=== PATIENT | female | born 1970 | race Caucasian/White ===

== ENCOUNTER 2019-12-05 18:54 | Observation (INO) | payer OTHER, SELFPAY ==
[2019-12-05 19:21] LABS: Absolute Lymphocytes (CBC) 2.8 K/uL (0.7-4.9); Basophils % 0.9 % (0-1.3); Hematocrit 46.4 % (36.0-45.0); MPV 9.4 fL (7.6-11.3); RBC Red Blood Cell Count 4.82 M/uL (3.86-4.86)
[2019-12-05 19:23] LABS: Protime INR 0.86
[2019-12-05] MEDS ORDERED: ASPIRIN 81 MG CHEWABLE TABLET ONE (19:43)
[2019-12-05] MEDS ORDERED: ONDANSETRON 4 MG/2 ML VIAL ONE (19:43)
[2019-12-05 19:50] LABS: ALT/SGPT 25 U/L (12-78); AST/SGOT 25 U/L (15-37); Albumin 3.6 g/dL (3.4-5.0); Alkaline Phosphatase 101 U/L (45-117); BUN Blood Urea Nitrogen 15 mg/dL (7-18); Bicarbonate 24 mmol/L (21-32); Bilirubin Direct < 0.1 mg/dL (0-0.2); Bilirubin Total 0.2 mg/dL (0.2-1.0); Glucose Level 82 mg/dL (74-106); Magnesium 2.7 mg/dL (1.8-2.4); NT PRO-BNP 190 pg/mL (<125); Potassium 4.5 mmol/L (3.5-5.1); Protein, Total 7.7 g/dL (6.4-8.2); Sodium Level 141 mmol/L (136-145); Troponin (Emerg Dept Use Only) < 0.02 ng/mL (0.0-0.045)
[2019-12-05] MEDS ORDERED: HYDROMORPHONE HCL 1 MG/ML INJ ONE (20:33)
[2019-12-05] MEDS ORDERED: NA CHLORIDE 0.9% 1,000 ML ONE (20:33)
[2019-12-05] MEDS ORDERED: ACETAMINOPHEN 500 MG TAB PO PRN (21:00)
[2019-12-05] MEDS ORDERED: MORPHINE 4 MG/ML SYR IV PRN (21:00)
--- NOTE | 2019-12-05 21:43 | EDPHYS ---
Physician Documentation [facility] Name: Diane Segovia Age: 49 yrs Sex: Female : 1970 Arrival Date: 12/05/2019 Time: 18:58 Bed 6 Private MD: ED Physician Roberto Dolan HPI: 12/04 21:15 This 49 yrs old Female presents to ER via Wheelchair with complaints of Chest ma2 Pain. 21:15 The patient or guardian reports chest pain that is located primarily in the substernal ma2 area. Onset: suddenly, 1 day(s) ago. Associated signs and symptoms: Pertinent negatives: cough, dizziness, lower extremity pain, lightheadedness. Duration: The patient or guardian reports a single episode. Severity of pain: At its worst the pain was moderate in the emergency department the pain has improved. The patient has experienced a previous episode. 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 - Social history:: Smoking status: Patient reports the use of cigarette tobacco products, cigars, Patient uses alcohol, on a daily basis. Patient/guardian denies using street drugs, Patient/guardian denies using alcohol. - Family history:: not pertinent. ROS: 21:15 Constitutional: Negative for fever, chills, and weight loss. ma2 21:15 All other systems are negative. Exam: 21:15 Constitutional: This is a well developed, well nourished patient who is awake, alert, ma2 and in no acute distress. Chest/axilla: Normal chest wall appearance and motion. Nontender with no deformity. No lesions are appreciated. Cardiovascular: Regular rate and rhythm with a normal S1 and S2. No gallops, murmurs, or rubs. Normal PMI, no JVD. No pulse deficits. Respiratory: Lungs have equal breath sounds bilaterally, clear to auscultation and percussion. No rales, rhonchi or wheezes noted. No increased work of breathing, no retractions or nasal flaring. Abdomen/GI: Soft, non-tender, with normal bowel sounds. No distension or tympany. No guarding or rebound. No evidence of tenderness throughout. MS/ Extremity: Pulses equal, no cyanosis. Neurovascular intact. Full, normal range of motion. Neuro: Awake and alert, GCS 15, oriented to person, place, time, and situation. Cranial nerves II-XII grossly intact. Motor strength 5/5 in all extremities. Sensory grossly intact. Cerebellar exam normal. Normal gait. Vital Signs: 18:58 BP 138 / 101; Pulse 69; Resp 18; Temp 98.3; Pulse Ox 99% ; Pain 6/10; ll1 20:14 BP 136 / 88; Pulse 66; Resp 16; Pulse Ox 97% on R/A; rv 21:00 BP 138 / 86; Pulse 68; Resp 16; Pulse Ox 98% on R/A; rv 22:00 BP 136 / 91; Pulse 66; Resp 16; Pulse Ox 97% on R/A; rv 23:00 BP 131 / 88; Pulse 86; Resp 17; Temp 98; Pulse Ox 97% on R/A; rv MDM: 19:04 Patient medically screened. ma2 21:15 Differential diagnosis: esophagitis, gastritis, gastroesophageal reflux disease (GERD), ma2 pleurisy, stable angina, unstable angina. HEART Score: History: Moderately Suspicious (1), ECG: Normal (0), Age: > 45 and < 65 years (1), Risk Factors: No Risk Factors Known (0), Troponin: < or = 1 x Normal Limit (0). The patient was given aspirin in the Emergency Department. Data reviewed: vital signs, nurses notes. 21:15 Counseling: I had a detailed discussion with the patient and/or guardian regarding: the ma2 historical points, exam findings, and any diagnostic results supporting the discharge/admit diagnosis, the presence of at least one elevated blood pressure reading (>120/80) during this emergency department visit, the need for further work-up and treatment in the hospital. 12/04 19:03 Order name: Basic Metabolic Panel; Complete Time: 20:37 sv 12/04 19:03 Order name: CBC with Diff; Complete Time: 20:37 sv 12/04 19:03 Order name: LFT's; Complete Time: 20:37 sv 12/04 19:03 Order name: Magnesium; Complete Time: 20:37 sv 12/04 19:03 Order name: NT PRO-BNP; Complete Time: 20:37 sv 12/04 19:03 Order name: PT-INR; Complete Time: 20:37 sv 12/04 19:03 Order name: Troponin (emerg Dept Use Only); Complete Time: 20:37 sv 12/04 21:05 Order name: Basic Metabolic Panel [facility] 12/04 21:05 Order name: Basic Metabolic Panel [facility] 12/04 21:05 Order name: CBC with Automated Diff [facility] 12/04 21:05 Order name: CBC with Automated Diff [facility] 12/04 21:05 Order name: Lipid Profile [facility] 12/04 21:05 Order name: Lipid Profile [facility] 12/04 21:05 Order name: PTT, Activated Partial Thromb [facility] 12/04 19:03 Order name: XRAY Chest (1 view) 12/04 19:03 Order name: EKG; Complete Time: 19:03 sv 12/04 19:03 Order name: Cardiac monitoring; Complete Time: 19:14 sv 12/04 19:03 Order name: EKG - Nurse/Tech; Complete Time: 19:14 sv 12/04 19:03 Order name: IV Saline Lock; Complete Time: 19:03 sv 12/04 21:05 Order name: CONS Physician Consult [facility] 12/04 21:05 Order name: Heart Healthy [facility] 12/04 21:05 Order name: Echo with Doppler [facility] 12/04 21:05 Order name: PTT, Activated Partial Thromb [facility] 12/04 22:54 Order name: RAD [facility] 12/04 19:03 Order name: Labs collected and sent; Complete Time: 19:03 sv 12/04 19:03 Order name: O2 Per Protocol; Complete Time: 19:03 sv 12/04 19:03 Order name: O2 Sat Monitoring; Complete Time: 19:03 sv Administered Medications: 19:40 Drug: Aspirin Chewable Tablet 324 mg Route: PO; rv 20:21 Follow up: Response: No adverse reaction rv 19:45 Drug: morphine 4 mg {Note: rass 0.} Route: IVP; Site: right antecubital; rv 20:20 Follow up: Response: No adverse reaction; Pain is unchanged, physician notified rv 19:45 Drug: Zofran (Ondansetron) 4 mg Route: IVP; Site: right antecubital; rv 20:21 Follow up: Response: No adverse reaction rv 20: Drug: Dilaudid 1 mg {Note: rass 0.} Route: IVP; Site: right antecubital; rv 23:30 Follow up: Response: No adverse reaction rv 20: Drug: NS 0.9% 1000 ml Route: IV; Rate: 1 bolus; Site: right antecubital; rv 23:30 Follow up: IV Status: Completed infusion; IV Intake: 1000ml rv 23:29 Drug: Phenergan 12.5 mg Route: IVP; Site: right antecubital; rv 23:29 Follow up: Response: Medication administered at discharge. rv Disposition: 12/05/19 21:17 Hospitalization ordered by Roberto Connors for Observation. Preliminary diagnosis is Chest pain, unspecified. - Bed requested for Telemetry/MedSurg (observation). - Status is Observation. rv - Condition is Stable. - Problem is new. - Symptoms are unchanged. Signatures: Dispatcher [employer] EDNatalie Vela RN RN sv Garcia, Cindy, RN RN Roberto Dolan MD MD ma2 Vicente, Ronaldo, RN RN Christian Hassan RN RN ll1 Corrections: (The following items were deleted from the chart) 22:15 21:17 Hospitalization Ordered by Roberto Connors MD for Observation. Preliminary cg diagnosis is Chest pain, unspecified. Bed requested for Telemetry/MedSurg (observation). Status is Observation. Condition is Stable. Problem is new. Symptoms are unchanged. [facility] 23:33 22:15 12/05/2019 21:17 Hospitalization Ordered by Roberto Connors MD for Observation. rv Preliminary diagnosis is Chest pain, unspecified. Bed requested for Telemetry/MedSurg (observation). Status is Observation. Condition is Stable. Problem is new. Symptoms are unchanged. cg
--- NOTE | 2019-12-05 21:43 | ER ---
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 States she had CP 3 weeks ll1 ago that she never got checked out. Coronavirus screen: Patient reports a cough. Patient reports shortness of breath or difficulty breathing. Patient denies measured and/or subjective temperature greater than 100.4F prior to today's visit. Patient denies travel on a cruise ship or to a country the [facility] currently lists as an affected area. Patient denies contact with known and/or suspected case of COVID-19. Patient instructed to continue to wear a mask when interacting with others. Patient moved to private room, placed in contact and droplet isolation with eye protection until further assessment. "smokers cough". Ebola Screen: Patient denies travel to an Ebola-affected area in the 21 days before illness onset. Initial Sepsis Screen: Does the patient meet any 2 criteria? No. Patient's initial sepsis screen is negative. Risk Assessment: Do you want to hurt yourself or someone else?. Onset of symptoms was December 05, 2019. 18:58 Method Of Arrival: Wheelchair ll1 18:58 Acuity: JULIAN 3 ll1 20:14 Initial Sepsis Screen: Does the patient have a suspected source of infection? No. rv Patient's initial sepsis screen is negative. 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 - Social history:: Smoking status: Patient reports the use of cigarette tobacco products, cigars, Patient uses alcohol, on a daily basis. Patient/guardian denies using street drugs, Patient/guardian denies using alcohol. - Family history:: not pertinent. Screenin:14 Abuse screen: Denies threats or abuse. Denies injuries from another. Nutritional rv screening: No deficits noted. Tuberculosis screening: No symptoms or risk factors identified. Fall Risk None identified. Assessment: 19:18 Reassessment: Spoke with patient's on phone; updated on waiting for results at lp1 this time. 19:30 General: Appears uncomfortable, Behavior is calm, cooperative. Pain: Complains of pain rv in chest Pain does not radiate. Pain began suddenly. Neuro: Level of Consciousness is awake, alert, obeys commands, Oriented to person, place, time, situation. Cardiovascular: Rhythm is sinus rhythm. Respiratory: Airway is patent Respiratory effort is even, unlabored. Derm: Skin is intact. 20:12 Reassessment: talked to the patient's partner, Mr Ashraf, on the phone and updated on rv the test results and plan of care. call back number, [phone]. 22:29 Reassessment: CONFIRM WITH DR AMAYA, PATIENT DOES NOT NEED TO BE PUT IN PUI. rv Vital Signs: 18:58 BP 138 / 101; Pulse 69; Resp 18; Temp 98.3; Pulse Ox 99% ; Pain 6/10; ll1 20:14 BP 136 / 88; Pulse 66; Resp 16; Pulse Ox 97% on R/A; rv 21:00 BP 138 / 86; Pulse 68; Resp 16; Pulse Ox 98% on R/A; rv 22:00 BP 136 / 91; Pulse 66; Resp 16; Pulse Ox 97% on R/A; rv 23:00 BP 131 / 88; Pulse 86; Resp 17; Temp 98; Pulse Ox 97% on R/A; rv ED Course: 18:55 Inserted saline lock: 20 gauge in right antecubital area, using aseptic technique. sv Blood collected. 18:58 Patient arrived in ED. ll1 19:00 Triage completed. ll1 19:00 Arm band placed on Patient placed in an exam room, on a stretcher. ll1 19:04 Roberto Amaya MD is Attending Physician. ma2 19:11 EKG done, by ED staff. tt3 19:14 Jad Vazquez, JASE is Primary Nurse. rv 20:14 Patient has correct armband on for positive identification. hall monitor on. Pulse rv ox on. NIBP on. 20:14 No provider procedures requiring assistance completed. Patient maintains SpO2 rv saturation greater than 95% on room air. 21:17 Roberto Connors MD is Hospitalizing Provider. ma2 23:32 IV is patent, with fluids infusing freely, with good blood return, Patient admitted, IV rv remains in place. Administered Medications: 19:40 Drug: Aspirin Chewable Tablet 324 mg Route: PO; rv 20:21 Follow up: Response: No adverse reaction rv 19:45 Drug: morphine 4 mg {Note: rass 0.} Route: IVP; Site: right antecubital; rv 20:20 Follow up: Response: No adverse reaction; Pain is unchanged, physician notified rv 19:45 Drug: Zofran (Ondansetron) 4 mg Route: IVP; Site: right antecubital; rv 20:21 Follow up: Response: No adverse reaction rv 20:27 Drug: Dilaudid 1 mg {Note: rass 0.} Route: IVP; Site: right antecubital; rv 23:30 Follow up: Response: No adverse reaction rv 20:27 Drug: NS 0.9% 1000 ml Route: IV; Rate: 1 bolus; Site: right antecubital; rv 23:30 Follow up: IV Status: Completed infusion; IV Intake: 1000ml rv 23:29 Drug: Phenergan 12.5 mg Route: IVP; Site: right antecubital; rv 23:29 Follow up: Response: Medication administered at discharge. rv Intake: 23:30 IV: 1000ml; Total: 1000ml. rv Outcome: 21:17 Decision to Hospitalize by Provider. ma2 23:32 Admitted to Med/surg accompanied by tech, via wheelchair, room 211, with chart, Report rv called to VENANCIO LAGUNA 23:32 Condition: good 23:32 Instructed on the need for admit. 23:33 Patient left the ED. rv Signatures: Natalie Perea RN RN sv Pena, Laura, RN RN lp1 Roberto Amaya MD MD sc2 Jad Vazquez RN RN rv Christian Hassan RN RN ll1 Nasir Mcintyre tt3
--- NOTE | 2019-12-05 22:53 | RAD REPORT ---
EXAM DESCRIPTION: RAD - Chest Single View - 12/05/2019 10:20 pm CLINICAL HISTORY: CHEST PAIN Chest pain. COMPARISON: No comparisons FINDINGS: Portable technique limits examination quality. The lungs are grossly clear. The heart is normal in size. No displaced fractures. IMPRESSION: No acute intrathoracic process suspected.
[2019-12-05] MEDS ORDERED: PROMETHAZINE INJ 25 MG/ML AMP ONE (23:26)
[2019-12-06] MEDS: METOPROLOL TAR 50 MG TAB PO SCH ×2 (00:06→10:09)
[2019-12-06 02:41] VITALS: BMI 29.0
[2019-12-06 04:47] LABS: Absolute Lymphocytes (CBC) 1.9 K/uL (0.7-4.9); Basophils % 0.7 % (0-1.3); Hematocrit 41.8 % (36.0-45.0); Lymphocytes % 28.3 % (15.3-44.8); RBC Red Blood Cell Count 4.31 M/uL (3.86-4.86)
[2019-12-06 04:58] LABS: HDL Cholesterol 49 mg/dL (40-60); LDL Cholesterol, Calculated 82 (<130); Troponin I < 0.02 ng/mL (0.0-0.045)
[2019-12-06 05:13] VITALS: O2SAT 93
[2019-12-06] MEDS ORDERED: REGADENOSON 0.4 MG/5 ML SYR IV ONE (09:00)
[2019-12-06] MEDS ORDERED: ASPIRIN EC 81 MG TAB PO SCH (09:00)
[2019-12-06] MEDS: ENOXAPARIN 40 MG/0.4 ML SQ SCH ×2 (09:00→10:10)
[2019-12-06 09:46] VITALS: BP 120/71; TEMP 97.7
--- NOTE | 2019-12-06 10:37 | RAD REPORT ---
EXAM DESCRIPTION: NM - Rest Stress Cardiac Imaging - 12/06/2019 10:13 am CLINICAL HISTORY: CP Chest pain. COMPARISON: No comparisons TECHNIQUE: The patient was administered approximately 10mCi of Tc 99m Sestamibi prior to resting SPE CT imaging of the heart. The patient was then administered approximately 30 mCi of Tc 99m Sestamibi f ollowing exercise or pharmacologic stress. Multiplanar SPECT images were reviewed. FINDINGS: No stress induced ischemic defect is seen to suggest stress induced ischemia. No fixed def ect is seen to suggest hibernating myocardium or scarred myocardium. The end diastolic volume is 99 ml, the end systolic volume is 46 ml, and the ejection fraction is 54 %. IMPRESSION: No stress induced ischemia.
--- NOTE | 2019-12-06 10:54 | EKG ---
Test Date: 2019-12-05 Test Time: 19:06:11 Human Factors Engineer: TLT MEASUREMENT RESULTS: Intervals: Rate: 62 FL: 120 QRSD: 90 QT: 436 QTc: 442 Recluse: P: 51 FL: 120 QRS: 51 T: 33 INTERPRETIVE STATEMENTS: Normal sinus rhythm Normal ECG No previous ECG available for comparison Electronically Signed On 12-06-19 10:53:20 CDT by Gurpreet Condon
--- NOTE | 2019-12-06 10:56 | P.HP ---
Certification for Inpatient Patient admitted to: Observation With expected LOS: <2 Midnights Patient will require the following post-hospital care: None Practitioner: I am a practitioner with admitting privileges, knowledge of patient current condition, hospital course, and medical plan of care. Services: Services provided to patient in accordance with Admission requirements found in Title 42 Section 412.3 of the Code of Federal Regulations Patient History Date of Service: 12/05/19 Reason for admission: CHEST PAIN RULE OUT ACUTE CORONARY SYNDROME History of Present Illness: PATIENT IS A 49-YEAR-OLD FEMALE CAME TO THE HOSPITAL CHEST PAIN. PAIN WAS MAINLY THE STERNAL REGION AND IT REALLY MADE HER SHORT OF BREATH. SHE HAS HAD SIMILAR CHEST PAIN IN THE THE PAST WHICH WAS ABOUT 3 WEEKS AGO. SHE WAS HAVING A HARD TIME BREATHING WELL. HE HAS A HISTORY OF TOBACCO ABUSE AND SMOKES A CIGAR DAILY. SHE WAS CONCERNED THAT SHE COULD HAVE COVID PNEUMONIA OR CARDIAC ISSUES. SHE DID WANT TO COME INTO THE HOSPITAL 3 WEEKS AGO BECAUSE OF THE OUTBREAK OF CORONAVIRUS. AT THIS TIME, WILL GO AHEAD AND ADMIT HER TO THE HOSPITAL AND GET STRESS TEST, ECHOCARDIOGRAM, AND CARDIOLOGY CONSULTATION. Allergies adhesive tape Allergy (Verified 12/05/19 23:35) krishnan Home Medications: Zolpidem Tartrate [Ambien*] 5 mg PO BEDTIME 12/05/19 - Past Medical/Surgical History Has patient received pneumonia vaccine in the past: No Diabetic: No -: depression -: hysterectomy -: Appendectomy -: Cholecystectomy - Family History Father Medical History: Hypertension Mother Medical History: Hypertension - Social History Smoking Status: Current every day smoker Alcohol use: Yes Place of Residence: Home Review of Systems 10-point ROS is otherwise unremarkable Physical Examination - Vital Signs Temperature: 97.7 F Blood Pressure: 120/71 Pulse: 53 Respirations: 15 Pulse Ox (%): 98 - Physical Exam General: Alert, In no apparent distress, Oriented x3 HEENT: Atraumatic, PERRLA, Mucous membr. moist/pink, EOMI, Sclerae nonicteric Neck: Supple, 2+ carotid pulse no bruit, No LAD, Without JVD or thyroid abnormality Respiratory: Clear to auscultation bilaterally, Normal air movement Cardiovascular: Regular rate/rhythm, Normal S1 S2, No murmurs Gastrointestinal: Normal bowel sounds, Soft and benign, Non-distended, No tenderness Musculoskeletal: No clubbing, No swelling, No tenderness Integumentary: No rashes Neurological: Normal gait, Normal speech, Normal strength at 5/5 x4 extr, Normal tone, Sensation intact, Cranial nerves 3-12 intact, Normal affect Lymphatics: No axilla or inguinal lymphadenopathy - Studies Laboratory Data (last 24 hrs) 12/05/19 18:55: PT 10.2, INR 0.86 12/05/19 18:55: WBC 7.6, Hgb 16.1 H, Hct 46.4 H, Plt Count 194 12/05/19 18:55: Sodium 141, Potassium 4.5, BUN 15, Creatinine 1.07, Glucose 82, Magnesium 2.7 H, Total Bilirubin 0.2, AST 25, ALT 25, Alkaline Phosphatase 101 Assessment & Plan - Problems (Diagnosis) (1) Chest pain, rule out acute myocardial infarction Current Visit: Yes Status: Acute (2) Tobacco use Current Visit: Yes Status: Acute - Plan 1. SERIAL TROPONINS AND EKG 2. CARDIOLOGY CONSULTATION 3. ECHOCARDIOGRAM AND INPATIENT STRESS TEST(PENDING CARDIOLOGY EVALUATION) 4. ANTI-PLATELET THERAPY, ANTI COAGULATION, BETA-RAFIQ, STATIN, AND O2 NEEDED 5. IV MORPHINE FOR PAIN 6. NITRO P.R.N. Discharge Plan: Home Plan to discharge in: 24 Hours - Advance Directives Does patient have a Living Will: No Does patient have a Durable POA for Healthcare: No - Code Status/Comfort Care Code Status Assessed: Yes Code Status: Full Code Critical Care: No Time Spent Managing PTS Care (In Minutes): 45
--- NOTE | 2019-12-06 12:08 | ECHO ---
HEIGHT: 5 ft 8 in WEIGHT: 191 lb 3.2 oz DATE OF STUDY: 12/06/[address]: Roberto Connors MD 2-DIMENSIONAL: YES M.MODE: YES DOPPLER: YES COLOR FLOW: YES TDS: NO PORTABLE: NO DEFINITY: NO BUBBLE STUDY: NO DIAGNOSIS: CHEST PAIN CARDIAC HISTORY: CATHERIZATION: NO SURGERY: NO PROSTHETIC VALVE: NO PACEMAKER: NO MEASUREMENTS (cm) DIASTOLIC (NORMALS) SYSTOLIC (NORMALS) IVSd 1.1 (0.6-1.2) LA Diam 3.4 (1.9-4.0) LVEF 58% LVIDd 3.6 (3.5-5.7) LVIDs 2.5 (2.0-3.5) %FS 30% LVPWd 0.9 (0.6-1.2) Ao Diam 2.6 (2.0-3.7) 2 DIMENSIONAL ASSESSMENT: RIGHT ATRIUM: NORMAL LEFT ATRIUM: NORMAL RIGHT VENTRICLE: NORMAL LEFT VENTRICLE: NORMAL TRICUSPID VALVE: NORMAL MITRAL VALVE: NORMAL PULMONIC VALVE: NORMAL AORTIC VALVE: NORMAL PERICARDIAL EFFUSION: NONE AORTIC ROOT: NORMAL LEFT VENTRICULAR WALL MOTION: NORMAL. DOPPLER/COLOR FLOW: NORMAL. COMMENTS: NORMAL 2D ECHO WITH DOPPLER. NO WALL MOTION ABNORMALITY. NO EFFUSION. TECHNOLOGIST: WILLIAM KING
--- NOTE | 2019-12-06 12:18 | TREADPHA ---
DX: CHEST PAIN Date of Study: 12/06/2019 Ht: 5' 8 " Wt: 191 lb 3.2 oz Consulting Physician: CAIO MEDICATIONS: TYLENOL, ASPIRIN, LOVENOX, LOPRESSOR, AMBIEN HISTORY: 49 YEAR OLD FEMALE WITH HISTORY OF DEPRESSION. ADMITTED FOR CHEST PAIN. PHYSICIAL EXAMINATION: RESTING B.P.: 130/80 RESTING H.R.: 50 RESTING EKG: SINUS BRADYCARDIA PROTOCOL: LEXISCAN EXERCISE TIME: 3:30 B.P. AT PEAK STRESS: 115/78 IMPRESSION: LEXISCAN STRESS TEST PERFORMED. CARDIOLITE INJECTED PER PROTOCOL. NO SUPRA VENTRICULAR TACHYCARDIA, NO VENTRICULAR TACHYCARDIA, NO ARRYTHMIA NOTED. PATIENT DENIED CHEST PAIN. RESPIRATORY EVEN NONLABORED, TOLERATED WELL. SEE NUCLEAR MEDICINE REPORT.
--- NOTE | 2019-12-06 22:55 | P.DS ---
Discharge Date: 12/06/19 Disposition: ROUTINE DISCHARGE Discharge Condition: GOOD Reason for Admission: CHEST PAIN RULE OUT ACUTE CORONARY SYNDROME Consultations: Cardiology - Problems (1) Chest pain, rule out acute myocardial infarction Status: Acute (2) Tobacco use Status: Acute Brief History of Present Illness: PATIENT IS A 49-YEAR-OLD FEMALE CAME TO THE HOSPITAL CHEST PAIN. PAIN WAS MAINLY THE STERNAL REGION AND IT REALLY MADE HER SHORT OF BREATH. SHE HAS HAD SIMILAR CHEST PAIN IN THE THE PAST WHICH WAS ABOUT 3 WEEKS AGO. SHE WAS HAVING A HARD TIME BREATHING WELL. HE HAS A HISTORY OF TOBACCO ABUSE AND SMOKES A CIGAR DAILY. SHE WAS CONCERNED THAT SHE COULD HAVE COVID PNEUMONIA OR CARDIAC ISSUES. SHE DID WANT TO COME INTO THE HOSPITAL 3 WEEKS AGO BECAUSE OF THE OUTBREAK OF CORONAVIRUS. AT THIS TIME, WILL GO AHEAD AND ADMIT HER TO THE HOSPITAL AND GET STRESS TEST, ECHOCARDIOGRAM, AND CARDIOLOGY CONSULTATION. Hospital Course: Patient continues to do well with no new complaints. Stress test and echocardiogram were negative. At this time, patient is doing well. I will discharge home with outpatient follow-up. Patient to follow with PCP for further workup if pain continues. Vital Signs/Physical Exam: Temp Pulse Resp BP Pulse Ox 97.7 F 53 15 120/71 98 12/06/19 10:56 12/06/19 10:56 12/06/19 10:56 12/06/19 10:56 12/06/19 10:56 General: Alert, In no apparent distress, Oriented x3 Laboratory Data at Discharge: WBC 6.6 K/uL (4.3-10.9) 12/06/19 04:11 Hgb 14.5 g/dL (12.0-15.0) 12/06/19 04:11 Hct 41.8 % (36.0-45.0) 12/06/19 04:11 Plt Count 159 K/uL (152-406) 12/06/19 04:11 PT 10.2 SECONDS (9.5-12.5) 12/05/19 18:55 INR 0.86 12/05/19 18:55 APTT 27.7 SECONDS (24.3-36.9) 12/06/19 04:11 Sodium 144 mmol/L (136-145) 12/06/19 04:11 Potassium 4.0 mmol/L (3.5-5.1) 12/06/19 04:11 BUN 14 mg/dL (7-18) 12/06/19 04:11 Creatinine 0.88 mg/dL (0.55-1.3) 12/06/19 04:11 Glucose 90 mg/dL (74-106) 12/06/19 04:11 Magnesium 2.7 mg/dL (1.8-2.4) H 12/05/19 18:55 Total Bilirubin 0.2 mg/dL (0.2-1.0) 12/05/19 18:55 AST 25 U/L (15-37) 12/05/19 18:55 ALT 25 U/L (12-78) 12/05/19 18:55 Alkaline Phosphatase 101 U/L (45-117) 12/05/19 18:55 Troponin I < 0.02 ng/mL (0.0-0.045) 12/06/19 04:11 Triglycerides 184 mg/dL (<150) H 12/06/19 04:11 Cholesterol 168 mg/dL (<200) 12/06/19 04:11 HDL Cholesterol 49 mg/dL (40-60) 12/06/19 04:11 Cholesterol/HDL Ratio 3.43 12/06/19 04:11 Home Medications: Zolpidem Tartrate [Ambien*] 5 mg PO BEDTIME 12/05/19 Cyclobenzaprine HCl [Flexeril] 5 mg PO BID PRN #20 tablet 12/06/19 predniSONE [Prednisone*] 20 mg PO BID #10 tab 12/06/19 New Medications: Cyclobenzaprine HCl [Flexeril] 5 mg PO BID PRN #20 tablet PRN Reason: Muscle Spasms predniSONE [Prednisone*] 20 mg PO BID #10 tab Patient Discharge Instructions: OK TO DC IV AND DC HOME. FOLLOW-UP WITH PRIMARY CARE PROVIDER IN 1-2 WEEKS. RETURN TO THE ER IF SYMPTOMS WORSEN. CALL DR. GUZMAN AT [phone] IF ANY QUESTIONS REGARDING HOSPITAL STAY. PLEASE CALL THE FLOOR AT [phone] IF ANY MEDICATION OR NURSING QUESTIONS. Diet: AHA Activity: Fall precautions Followup: Gurpreet Condon MD [ACTIVE - CAN ADMIT] - Time spent managing pt's care (in minutes): 25
--- NOTE | 2019-12-07 01:28 | CON ---
Date of Consultation: 12/06/2019 Reason For Consultation: Chest pain. History Of Present Illness: Ms. Segovia is a 49-year-old woman who has really no significant past med ical history except for depression. She is not taking any medicine. She does not have any allergies . She came in with substernal chest pain that has been going on for about a day. Denied any fever o r chills or cough. She has never had similar episodes in the near future. She described the pain as more mid epigastric to left lateral chest wall that was sharp and stabbing without any nausea, vomit ing, diaphoresis, PND, orthopnea, pedal edema, palpitations, or syncope. Past Medical History: Negative. Allergies: NONE. Medications: None. Review of Systems: Negative. Social History: Negative. Family History: Noncontributory. Physical Examination: Vital Signs: Stable. She was afebrile. HEENT: Negative. Neck: Supple without any bruit. Chest: Clear to auscultation and percussion. Cardiac: Revealed a regular rhythm and rate. No murmurs, gallops, or rubs. Abdomen: Benign. Extremities: Revealed no clubbing, cyanosis, or edema. Laboratory Data: Her chest x-ray was normal. Her EKG was normal. Her laboratory evaluation was nor mal. Impression And Plan: Atypical chest pain in a patient with very low risk factor profile. Normal EKG , normal troponin, normal chest x-ray. Echocardiogram and stress test were ordered by Dr. Connors. We will see what those showed before making final decisions. I presume they are going to be negative. I think patient may require some proton pump inhibitor when she goes home. I think her symptoms are more likely related to gastrointestinal etiology. NB/MODL Voice ID: [id number] Report ID: [id number]
== END 2019-12-06 12:13 | disposition home or self-care (01) ==
LOC: ER 18:54 → ERHOLD 21:01 → 2ND 22:41
PROVIDERS: ADMIT Hospitalist; ATTEND Hospitalist
DX: R07.89 Other chest pain (principal); Z11.59 Encounter for screening for other viral diseases; F17.210 Nicotine dependence, cigarettes, uncomplicated
CPT/HCPCS: 96361; 93005; 93017; 93306; 85025 ×2; 80048 ×2; 36415 ×2; 83735; 85610; 80061; 80076; 85730; 84484 ×3; 83880; 71045; 78452; 96375; 96374; 99285; U0002; J2550; J1170; J2785; J7030; J2405; A9500; G0378 ×2; J1650